=== PATIENT | male | born 1965 | race Caucasian/White ===

== ENCOUNTER 2021-09-05 12:59 | Emergency (ER) | payer BC ==
[~2021-09-05] VITALS: Ht 177.8 cm; Wt 106.6 kg
[~2021-09-05 12:59] MED LIST: SIMVASTATIN20 MG PO
[2021-09-05] MEDS ORDERED: CASIRIVIMAB/IMDEVIMAB 10 ML in SODIUM CHLORIDE 0.9% 100 ML IV ONE (13:45)
[2021-09-05] MEDS ORDERED: ALBUTEROL SULF 0.083% NEB SOLN 3 ML NEB ONE (19:33)
== END 2021-09-05 15:17 | disposition home or self-care (01) ==
LOC: ER 14:32
DX: U07.1 COVID-19 (principal); R05.9 Cough, unspecified
CPT/HCPCS: 99283; J7050